=== PATIENT | male | born 2000 | race African-American/Black ===

== ENCOUNTER 2024-04-08 20:13 | Emergency (ER) | payer SELFPAY ==
[2024-04-08] MEDS ORDERED: Lorazepam 2 MG/ML VIAL ONE (20:23)
[2024-04-08] MEDS ORDERED: levETIRAcetam 500 MG (5 mL) VIAL ONE (20:24)
[2024-04-08 20:32] LABS: #Basophils Less than 0.03 10x3/uL (0.0-0.2); %Basophils 0.2 % (0.0-1.0); %Eosinophils 0.5 % (0.0-10.0); %Lymphocytes 38.3 % (21.0-51.0); %Monocytes 8.5 % (0.0-10.0); %Neutrophils 52.3 % (42.0-75.0); Hematocrit 40.3 % (42.0-52.0); Hemoglobin 14.1 g/dL (14.0-18.0); Mean Corpuscular Hemoglobin 30.1 pg (27.0-31.0); Mean Corpuscular Volume 85.9 fL (78.0-98.0); Platelet Count 273 10x3/uL (130-400); RBC Distribution Width 11.4 % (11.5-14.5); Red Blood Cell (RBC) Count 4.69 mill/uL (4.70-6.10)
[2024-04-08 20:44] LABS: Anion Gap 13 mmol/L (10-20); BUN (Urea Nitrogen) 15 mg/dL (8.9-20.6); Calc. Creatinine Clearance 0 mL/min (70-130); Calcium 9.4 mg/dL (7.8-10.44); Carbon Dioxide 19 mmol/L (22-29); Chloride 105 mmol/L (98-107); Estimated GFR 108; Glucose 101 mg/dL (70-105); Potassium 3.7 mmol/L (3.5-5.1); Sodium 133 mmol/L (136-145)
[2024-04-08 21:13] LABS: Bacteria/HPF None Seen HPF (None Seen); Bilirubin Negative (Negative); Blood, Urine Trace (Negative); CAUTI Indications for Culture Alt mental st,lethar; Clarity Clear (Clear); Glucose, Urine (Dipstick) Normal (Negative); Ketone, Urine Negative (Negative); Leukocyte Negative Leu/uL (Negative); Nitrite Negative (Negative); Protein, Urine (Dipstick) 50 mg/dL (Neg-Trace); RBC/HPF None Seen HPF (0-3); Specific Gravity, Urine 1.024 (1.002-1.036); Squamous Epithelial None Seen HPF (0-3); Urobilinogen Normal mg/dL (Less than 2); WBC/HPF 0-3 HPF (0-3); pH, Urine 6.5 (5.0-9.0)
[2024-04-08 21:14] LABS: Sperm/HPF 1+ HPF (None Seen)
[2024-04-08 21:15] LABS: Urine Culture Reflex No No
[2024-04-08 21:18] LABS: Amphetamine Not Detected (NotDetected); Barbiturates Screen Not Detected (NotDetected); Benzodiazepine Screen Not Detected (NotDetected); Cocaine Metabolite Screen Not Detected (NotDetected); Methadone Not Detected (NotDetected); Methamphetamine Not Detected (NotDetected); Opiate Screen Not Detected (NotDetected); Oxycodone Screen Not Detected (NotDetected); Phencyclidine (PCP) Not Detected (NotDetected); THC/Cannabinoid Screen Not Detected (NotDetected); Tricyclic Screen Not Detected (NotDetected)
== END 2024-04-09 03:56 | disposition home or self-care (01) ==
LOC: ERS 20:13 → EDBD 20:13 → ERS 04-09 03:56
DX: G40.909 Epilepsy, unspecified, not intractable, without status epilepticus (principal); E11.9 Type 2 diabetes mellitus without complications
CPT/HCPCS: 70450; 80048; 80306; 81001; 84146; 85025; 93005; 96365; 96375; J1953; J2060

== ENCOUNTER 2024-04-09 14:48 | Emergency (ER) | payer SELFPAY ==
[2024-04-09] MEDS ORDERED: hydrOXYzine 25 MG TAB ONE (16:14)
[2024-04-09 16:36] LABS: #Basophils Less than 0.03 10x3/uL (0.0-0.2); %Basophils 0.3 % (0.0-1.0); %Eosinophils 0.7 % (0.0-10.0); %Lymphocytes 24.4 % (21.0-51.0); %Monocytes 9.6 % (0.0-10.0); %Neutrophils 64.8 % (42.0-75.0); Hematocrit 38.5 % (42.0-52.0); Hemoglobin 13.4 g/dL (14.0-18.0); Mean Corpuscular HGB CONC 34.8 g/dL (32.0-36.0); Mean Corpuscular Hemoglobin 29.9 pg (27.0-31.0); Mean Corpuscular Volume 85.9 fL (78.0-98.0); Mean Platelet Volume 9.1 fL (7.4-10.4); Platelet Count 253 10x3/uL (130-400); RBC Distribution Width 11.3 % (11.5-14.5); Red Blood Cell (RBC) Count 4.48 mill/uL (4.70-6.10)
[2024-04-09 16:55] LABS: ALT (SGPT) 33 U/L (8-55); AST (SGOT) 34 U/L (5-34); Alkaline Phosphatase 69 U/L (40-110); Anion Gap 11 mmol/L (10-20); BUN (Urea Nitrogen) 13 mg/dL (8.9-20.6); Bilirubin, Total 0.5 mg/dL (0.2-1.2); Calc. Creatinine Clearance 0 mL/min (70-130); Calcium 8.8 mg/dL (7.8-10.44); Carbon Dioxide 24 mmol/L (22-29); Chloride 107 mmol/L (98-107); Estimated GFR 110; Globulin 2.9 g/dL (2.4-3.5); Glucose 84 mg/dL (70-105); Potassium 3.8 mmol/L (3.5-5.1); Protein, Total 6.9 g/dL (6.0-8.3); Sodium 138 mmol/L (136-145)
[2024-04-09] MEDS ORDERED: Topiramate 25 MG TAB PO SCH (17:15)
== END 2024-04-09 17:34 | disposition home or self-care (01) ==
LOC: ERS 14:48
DX: G40.909 Epilepsy, unspecified, not intractable, without status epilepticus (principal); E11.9 Type 2 diabetes mellitus without complications
CPT/HCPCS: 36415; 80053; 83605; 85025; 99284

== ENCOUNTER 2024-04-13 01:18 | Inpatient (IN) | payer OTHER, SELFPAY ==
[2024-04-13] MEDS ORDERED: Ondansetron PF 4 MG/2 ML Vial ONE (02:06)
[2024-04-13] MEDS ORDERED: Lorazepam 2 MG/ML VIAL ONE ×2 (02:12→02:15)
[2024-04-13 02:14] LABS: #Basophils Less than 0.03 10x3/uL (0.0-0.2); %Basophils 0.4 % (0.0-1.0); %Eosinophils 0.9 % (0.0-10.0); %Lymphocytes 39.5 % (21.0-51.0); %Monocytes 8.5 % (0.0-10.0); %Neutrophils 50.7 % (42.0-75.0); Hematocrit 40.3 % (42.0-52.0); Hemoglobin 13.5 g/dL (14.0-18.0); Mean Corpuscular HGB CONC 33.5 g/dL (32.0-36.0); Mean Corpuscular Hemoglobin 29.6 pg (27.0-31.0); Mean Corpuscular Volume 88.4 fL (78.0-98.0); Platelet Count 241 10x3/uL (130-400); RBC Distribution Width 11.2 % (11.5-14.5); Red Blood Cell (RBC) Count 4.56 mill/uL (4.70-6.10)
[2024-04-13 02:30] LABS: ALT (SGPT) 34 U/L (8-55); AST (SGOT) 35 U/L (5-34); Albumin 4.2 g/dL (3.5-5.0); Alkaline Phosphatase 72 U/L (40-110); Anion Gap 18 mmol/L (10-20); BUN (Urea Nitrogen) 11 mg/dL (8.9-20.6); Bilirubin, Total 0.3 mg/dL (0.2-1.2); Calc. Creatinine Clearance 0 mL/min (70-130); Carbon Dioxide 15 mmol/L (22-29); Chloride 106 mmol/L (98-107); Estimated GFR 120; Globulin 3.3 g/dL (2.4-3.5); Glucose 79 mg/dL (70-105); Protein, Total 7.5 g/dL (6.0-8.3); Sodium 135 mmol/L (136-145)
[2024-04-13] MEDS ORDERED: Ondansetron ODT 4 MG TAB PO PRN (07:37)
[2024-04-13 08:28] LABS: Amphetamine Not Detected (NotDetected); Barbiturates Screen Not Detected (NotDetected); Benzodiazepine Screen Not Detected (NotDetected); Cocaine Metabolite Screen Not Detected (NotDetected); Methadone Not Detected (NotDetected); Methamphetamine Not Detected (NotDetected); Opiate Screen Not Detected (NotDetected); Oxycodone Screen Not Detected (NotDetected); Phencyclidine (PCP) Not Detected (NotDetected); THC/Cannabinoid Screen Not Detected (NotDetected); Tricyclic Screen Not Detected (NotDetected)
[2024-04-13 09:07] VITALS: BMI 22.4
[2024-04-13] MEDS: SODIUM CHLORIDE IVPB SCH (09:27)
[2024-04-13] MEDS: FOSPHENYTOIN SODIUM IVPB SCH (09:27)
[2024-04-13] MEDS: ADMIXTURE FEE IVPB SCH (09:27)
[2024-04-13] MEDS: Enoxaparin 40 MG (0.4 mL) SYRINGE SC SCH (10:33)
[2024-04-13] MEDS: Fosphenytoin Sodium 200 MG in Sodium Chloride 0.9% 50 ML IVPB SCH (10:33)
[2024-04-13] MEDS: Acetaminophen 325 MG TAB PO PRN (12:17)
[2024-04-13] MEDS: Lorazepam 2 MG/ML VIAL SLOW IVP PRN (12:52)
[2024-04-13] MEDS: FLU (Fluarix Triv) TS24-25(6MOS UP)/PF 45 MCG/0.5 ML Syringe IM ONE (15:00)
[2024-04-14] MEDS ORDERED: Guaifenesin DM 100-10/5 ML UDCUP PO PRN (15:48)
[2024-04-15] MEDS: Lorazepam 2 MG/ML VIAL SLOW IVP PRN (15:55)
[2024-04-15] MEDS ORDERED: Lorazepam 2 MG/ML VIAL SLOW IVP PRN (16:26)
[2024-04-15] MEDS ORDERED: QUEtiapine 25 MG TAB PO SCH ×2 (16:30→21:00)
[2024-04-15] MEDS: QUEtiapine 25 MG TAB PO SCH (16:46)
[2024-04-15 17:55] VITALS: BMI 22.4
[2024-04-15] MEDS ORDERED: clonazePAM 1 MG TAB PO SCH (21:00)
[2024-04-16 09:02] VITALS: BP 139/86; TEMP 98.1
[2024-04-16] MEDS: QUEtiapine 25 MG TAB PO SCH (10:41)
== END 2024-04-16 11:20 | DRG 101 ==
LOC: ERS 01:18 → ERHOLD 05:42 → PCU 08:23 → OBSVTOIN 04-15 16:42
PROVIDERS: ADMIT Student in an Organized Health Care Education/Training Program; ATTEND Internal Medicine
PROC: 4A10X4Z Monitoring of Central Nervous Electrical Activity, External Approach (ICD-10-PCS; principal; 2024-04-13)
DX: R56.9 Unspecified convulsions (principal); E11.9 Type 2 diabetes mellitus without complications; F31.9 Bipolar disorder, unspecified; F43.10 Post-traumatic stress disorder, unspecified; Z98.890 Other specified postprocedural states; Z79.899 Other long term (current) drug therapy; Z88.8 Allergy status to other drugs, medicaments and biological substances
CPT/HCPCS: 36415; 36416; 70450; 80053; 80306; 84146; 85025; 90656; 93005; 95813; 96374; 96375; J1650; J2060; J2405; Q2009

== ENCOUNTER 2024-04-24 15:27 | Emergency (ER) | payer OTHER ==
[2024-04-24] MEDS ORDERED: Lorazepam 2 MG/ML VIAL ONE (15:36)
[2024-04-24] MEDS ORDERED: Fosphenytoin Sodium 1,500 MG, Admixture Fee 1 EACH in Sodium Chloride 0.9% 100 ML IVPB SCH (16:45)
[2024-04-24 16:55] LABS: Bacteria/HPF None Seen HPF (None Seen); Bilirubin Negative (Negative); Blood, Urine Negative (Negative); CAUTI Indications for Culture Alt mental st,lethar; Clarity Clear (Clear); Glucose, Urine (Dipstick) Normal (Negative); Ketone, Urine Negative (Negative); Leukocyte Negative Leu/uL (Negative); Nitrite Negative (Negative); Protein, Urine (Dipstick) Negative (Neg-Trace); RBC/HPF 0-3 HPF (0-3); Squamous Epithelial 0-3 HPF (0-3); Urobilinogen Normal mg/dL (Less than 2); WBC/HPF 0-3 HPF (0-3)
[2024-04-24 16:57] LABS: Urine Culture Reflex No No
[2024-04-24 17:01] LABS: Amphetamine Not Detected (NotDetected); Barbiturates Screen Not Detected (NotDetected); Benzodiazepine Screen Not Detected (NotDetected); Cocaine Metabolite Screen Not Detected (NotDetected); Methadone Not Detected (NotDetected); Methamphetamine Not Detected (NotDetected); Opiate Screen Not Detected (NotDetected); Oxycodone Screen Not Detected (NotDetected); Phencyclidine (PCP) Not Detected (NotDetected); THC/Cannabinoid Screen Not Detected (NotDetected); Tricyclic Screen Not Detected (NotDetected)
[2024-04-24 17:19] LABS: #Basophils 0.03 10x3/uL (0.0-0.2); #Eosinophils Less than 0.03 10x3/uL (0.0-0.7); %Basophils 0.2 % (0.0-1.0); %Eosinophils 0.1 % (0.0-10.0); %Lymphocytes 19.2 % (21.0-51.0); %Monocytes 5.1 % (0.0-10.0); %Neutrophils 75.2 % (42.0-75.0); Hematocrit 51.2 % (42.0-52.0); Hemoglobin 17.1 g/dL (14.0-18.0); Mean Corpuscular HGB CONC 33.4 g/dL (32.0-36.0); Mean Corpuscular Hemoglobin 29.9 pg (27.0-31.0); Mean Corpuscular Volume 89.7 fL (78.0-98.0); Platelet Count 281 10x3/uL (130-400); RBC Distribution Width 11.6 % (11.5-14.5); Red Blood Cell (RBC) Count 5.71 mill/uL (4.70-6.10)
== END 2024-04-24 18:28 | disposition left against medical advice (07) ==
LOC: ERS 15:27
DX: G40.909 Epilepsy, unspecified, not intractable, without status epilepticus (principal); E11.9 Type 2 diabetes mellitus without complications
CPT/HCPCS: 71045; 80177; 80306; 81001; 85025; 93005; 94760; 96365; J2060; Q2009

== ENCOUNTER 2024-04-25 06:24 | Emergency (ER) | payer OTHER ==
[2024-04-25] MEDS ORDERED: levETIRAcetam 500 MG (5 mL) VIAL ONE (06:52)
[2024-04-25] MEDS ORDERED: Lorazepam 2 MG/ML VIAL ONE (06:52)
[2024-04-25 07:03] LABS: #Basophils Less than 0.03 10x3/uL (0.0-0.2); #Eosinophils Less than 0.03 10x3/uL (0.0-0.7); %Basophils 0.2 % (0.0-1.0); %Eosinophils 0.2 % (0.0-10.0); %Lymphocytes 14.5 % (21.0-51.0); %Monocytes 6.1 % (0.0-10.0); %Neutrophils 78.7 % (42.0-75.0); Hematocrit 38.3 % (42.0-52.0); Hemoglobin 13.3 g/dL (14.0-18.0); Mean Corpuscular HGB CONC 34.7 g/dL (32.0-36.0); Mean Corpuscular Hemoglobin 30.2 pg (27.0-31.0); Mean Platelet Volume 8.8 fL (7.4-10.4); Platelet Count 249 10x3/uL (130-400); RBC Distribution Width 11.4 % (11.5-14.5)
[2024-04-25 07:21] LABS: ALT (SGPT) 91 U/L (8-55); AST (SGOT) 47 U/L (5-34); Albumin 4.1 g/dL (3.5-5.0); Alkaline Phosphatase 78 U/L (40-110); Anion Gap 13 mmol/L (10-20); BUN (Urea Nitrogen) 12 mg/dL (8.9-20.6); Bilirubin, Total 0.3 mg/dL (0.2-1.2); Calc. Creatinine Clearance 0 mL/min (70-130); Calcium 8.8 mg/dL (7.8-10.44); Carbon Dioxide 19 mmol/L (22-29); Chloride 112 mmol/L (98-107); Estimated GFR 117; Glucose 97 mg/dL (70-105); Potassium 3.5 mmol/L (3.5-5.1); Protein, Total 7.1 g/dL (6.0-8.3); Sodium 140 mmol/L (136-145)
[2024-04-25 07:27] LABS: Troponin I Less than 0.010 ng/mL (< 0.028)
== END 2024-04-25 09:49 | disposition short-term general hospital (02) ==
LOC: ERS 06:24 → EEVIPCON 06:24 → ERS 09:49
DX: T74.21XA Adult sexual abuse, confirmed, initial encounter (principal); G40.909 Epilepsy, unspecified, not intractable, without status epilepticus; E11.9 Type 2 diabetes mellitus without complications
CPT/HCPCS: 36415; 71045; 80053; 80177; 80306; 81001; 83605; 84484; 85025; 93005; 94760; 96365; 96374; 96375; J1953; J2060; Q2009

== ENCOUNTER 2024-05-02 18:19 | Emergency (ER) | payer OTHER ==
[2024-05-02 19:07] LABS: #Basophils Less than 0.03 10x3/uL (0.0-0.2); %Basophils 0.2 % (0.0-1.0); %Eosinophils 0.4 % (0.0-10.0); %Lymphocytes 22.4 % (21.0-51.0); %Monocytes 5.4 % (0.0-10.0); %Neutrophils 71.4 % (42.0-75.0); Hemoglobin 14.9 g/dL (14.0-18.0); Mean Corpuscular HGB CONC 33.9 g/dL (32.0-36.0); Mean Corpuscular Hemoglobin 29.8 pg (27.0-31.0); Platelet Count 316 10x3/uL (130-400); RBC Distribution Width 11.2 % (11.5-14.5)
[2024-05-02 19:40] LABS: ALT (SGPT) 55 U/L (8-55); AST (SGOT) 36 U/L (5-34); Albumin 4.8 g/dL (3.5-5.0); Alkaline Phosphatase 93 U/L (40-110); Anion Gap 16 mmol/L (10-20); BUN (Urea Nitrogen) 11 mg/dL (8.9-20.6); Bilirubin, Total 0.3 mg/dL (0.2-1.2); Calc. Creatinine Clearance 0 mL/min (70-130); Calcium 9.8 mg/dL (7.8-10.44); Carbon Dioxide 23 mmol/L (22-29); Chloride 106 mmol/L (98-107); Estimated GFR 93; Glucose 93 mg/dL (70-105); Lipase 26 U/L (8-78); Potassium 3.7 mmol/L (3.5-5.1); Protein, Total 8.8 g/dL (6.0-8.3); Sodium 141 mmol/L (136-145)
[2024-05-02] MEDS ORDERED: Ondansetron PF 4 MG/2 ML Vial ONE (20:09)
[2024-05-02] MEDS ORDERED: levETIRAcetam 500 MG TAB ONE (22:05)
[2024-05-02] MEDS ORDERED: Lorazepam 2 MG/ML VIAL ONE ×2 (22:15→22:34)
[2024-05-02] MEDS ORDERED: levETIRAcetam 500 MG (5 mL) VIAL ONE (22:15)
[2024-05-02 22:35] LABS: Bacteria/HPF None Seen HPF (None Seen); Bilirubin Negative (Negative); Blood, Urine Trace (Negative); CAUTI Indications for Culture Alt mental st,lethar; Clarity Clear (Clear); Glucose, Urine (Dipstick) Normal (Negative); Ketone, Urine Negative (Negative); Leukocyte Negative Leu/uL (Negative); Nitrite Negative (Negative); Protein, Urine (Dipstick) Negative (Neg-Trace); RBC/HPF 0-3 HPF (0-3); Specific Gravity, Urine 1.008 (1.002-1.036); Squamous Epithelial 0-3 HPF (0-3); Urobilinogen Normal mg/dL (Less than 2); WBC/HPF 0-3 HPF (0-3); pH, Urine 6.5 (5.0-9.0)
[2024-05-02 22:40] LABS: Urine Culture Reflex No No
== END 2024-05-03 00:06 | disposition home or self-care (01) ==
LOC: ERS 18:19
DX: G40.909 Epilepsy, unspecified, not intractable, without status epilepticus (principal); R11.2 Nausea with vomiting, unspecified; R19.7 Diarrhea, unspecified; E11.9 Type 2 diabetes mellitus without complications; Z87.891 Personal history of nicotine dependence; Z79.899 Other long term (current) drug therapy
CPT/HCPCS: 36415; 71045; 80053; 81001; 83690; 85025; 87428; 93005; 96372; 96374; J1953; J2060; J2405

== ENCOUNTER 2024-05-10 00:10 | Emergency (ER) | payer OTHER, SELFPAY ==
[2024-05-10 01:16] LABS: #Basophils 0.03 10x3/uL (0.0-0.2); #Eosinophils Less than 0.03 10x3/uL (0.0-0.7); %Basophils 0.3 % (0.0-1.0); %Eosinophils 0.2 % (0.0-10.0); %Lymphocytes 14.4 % (21.0-51.0); %Monocytes 7.3 % (0.0-10.0); %Neutrophils 77.5 % (42.0-75.0); Hematocrit 38.7 % (42.0-52.0); Hemoglobin 13.2 g/dL (14.0-18.0); Mean Corpuscular HGB CONC 34.1 g/dL (32.0-36.0); Mean Corpuscular Hemoglobin 29.8 pg (27.0-31.0); Mean Corpuscular Volume 87.4 fL (78.0-98.0); Mean Platelet Volume 9.3 fL (7.4-10.4); Platelet Count 292 10x3/uL (130-400); RBC Distribution Width 11.2 % (11.5-14.5); Red Blood Cell (RBC) Count 4.43 mill/uL (4.70-6.10)
[2024-05-10 01:30] LABS: Alcohol Less than 10.0 mg/dL (Less than 10)
[2024-05-10 01:32] LABS: Acetaminophen Less than 10 mcg/mL (Less than 10); Alcohol Less than 10.0 mg/dL (Less than 10); Salicylate Less than 8.0 mg/dL (Less than 8.0)
[2024-05-10 01:33] LABS: ALT (SGPT) 28 U/L (8-55); AST (SGOT) 28 U/L (5-34); Albumin 4.2 g/dL (3.5-5.0); Alkaline Phosphatase 81 U/L (40-110); Anion Gap 14 mmol/L (10-20); BUN (Urea Nitrogen) 13 mg/dL (8.9-20.6); Bilirubin, Total 0.3 mg/dL (0.2-1.2); CK (CPK) 401 U/L (30-200); Calc. Creatinine Clearance 0 mL/min (70-130); Calcium 9.1 mg/dL (7.8-10.44); Carbon Dioxide 22 mmol/L (22-29); Chloride 106 mmol/L (98-107); Estimated GFR 94; Globulin 3.4 g/dL (2.4-3.5); Glucose 103 mg/dL (70-105); Potassium 3.7 mmol/L (3.5-5.1); Protein, Total 7.6 g/dL (6.0-8.3); Sodium 138 mmol/L (136-145)
[2024-05-10 01:35] LABS: Bacteria/HPF None Seen HPF (None Seen); Bilirubin Negative (Negative); Blood, Urine Negative (Negative); CAUTI Indications for Culture Alt mental st,lethar; Clarity Clear (Clear); Glucose, Urine (Dipstick) Normal (Negative); Ketone, Urine Negative (Negative); Leukocyte Negative Leu/uL (Negative); Nitrite Negative (Negative); Protein, Urine (Dipstick) Negative (Neg-Trace); RBC/HPF 0-3 HPF (0-3); Specific Gravity, Urine 1.025 (1.002-1.036); Squamous Epithelial 0-3 HPF (0-3); Urobilinogen Normal mg/dL (Less than 2); WBC/HPF 0-3 HPF (0-3); pH, Urine 6.5 (5.0-9.0)
[2024-05-10 01:37] LABS: Urine Culture Reflex No No
[2024-05-10 01:43] LABS: Amphetamine Not Detected (NotDetected); Barbiturates Screen Not Detected (NotDetected); Benzodiazepine Screen Not Detected (NotDetected); Cocaine Metabolite Screen Not Detected (NotDetected); Methadone Not Detected (NotDetected); Methamphetamine Not Detected (NotDetected); Opiate Screen Not Detected (NotDetected); Oxycodone Screen Not Detected (NotDetected); Phencyclidine (PCP) Not Detected (NotDetected); THC/Cannabinoid Screen Not Detected (NotDetected); Tricyclic Screen Not Detected (NotDetected)
== END 2024-05-10 03:04 | disposition home or self-care (01) ==
LOC: ERS 00:10
DX: F32.A Depression, unspecified (principal); E11.9 Type 2 diabetes mellitus without complications; J45.909 Unspecified asthma, uncomplicated; G40.909 Epilepsy, unspecified, not intractable, without status epilepticus; Z87.891 Personal history of nicotine dependence; Z79.899 Other long term (current) drug therapy
CPT/HCPCS: 80053; 80306; 80307; 81001; 82550; 84443; 85025; 99285

== ENCOUNTER 2024-05-11 01:34 | Emergency (ER) | payer OTHER ==
[2024-05-11] MEDS ORDERED: Ketorolac Tromethamine 30 MG (1 mL) VIAL ONE (01:55)
[2024-05-11] MEDS ORDERED: levETIRAcetam 500 MG (5 mL) VIAL ONE (01:55)
[2024-05-11 02:08] LABS: #Basophils 0.03 10x3/uL (0.0-0.2); #Eosinophils Less than 0.03 10x3/uL (0.0-0.7); %Basophils 0.4 % (0.0-1.0); %Eosinophils 0.1 % (0.0-10.0); %Lymphocytes 21.4 % (21.0-51.0); %Monocytes 9.5 % (0.0-10.0); %Neutrophils 68.3 % (42.0-75.0); Hematocrit 39.3 % (42.0-52.0); Hemoglobin 13.1 g/dL (14.0-18.0); Mean Corpuscular HGB CONC 33.3 g/dL (32.0-36.0); Mean Corpuscular Hemoglobin 30.3 pg (27.0-31.0); Mean Platelet Volume 9.1 fL (7.4-10.4); Platelet Count 255 10x3/uL (130-400); RBC Distribution Width 11.1 % (11.5-14.5); Red Blood Cell (RBC) Count 4.32 mill/uL (4.70-6.10)
[2024-05-11 02:22] LABS: ALT (SGPT) 25 U/L (8-55); AST (SGOT) 28 U/L (5-34); Albumin 4.1 g/dL (3.5-5.0); Alkaline Phosphatase 85 U/L (40-110); Anion Gap 15 mmol/L (10-20); BUN (Urea Nitrogen) 10 mg/dL (8.9-20.6); Bilirubin, Total 0.4 mg/dL (0.2-1.2); Calc. Creatinine Clearance 0 mL/min (70-130); Carbon Dioxide 19 mmol/L (22-29); Chloride 107 mmol/L (98-107); Estimated GFR 106; Globulin 3.1 g/dL (2.4-3.5); Glucose 104 mg/dL (70-105); Potassium 3.5 mmol/L (3.5-5.1); Protein, Total 7.2 g/dL (6.0-8.3); Sodium 137 mmol/L (136-145)
== END 2024-05-11 02:49 | disposition home or self-care (01) ==
LOC: ERS 01:34
DX: G40.909 Epilepsy, unspecified, not intractable, without status epilepticus (principal); E11.9 Type 2 diabetes mellitus without complications; Z87.891 Personal history of nicotine dependence
CPT/HCPCS: 36415; 80053; 85025; 93005; 94760; 96365; 96375; J1885; J1953

== ENCOUNTER 2024-05-19 13:42 | Emergency (ER) | payer OTHER, SELFPAY ==
[2024-05-19 14:40] LABS: #Basophils Less than 0.03 10x3/uL (0.0-0.2); #Eosinophils Less than 0.03 10x3/uL (0.0-0.7); %Basophils 0.3 % (0.0-1.0); %Eosinophils 0.3 % (0.0-10.0); %Lymphocytes 26.6 % (21.0-51.0); %Monocytes 7.3 % (0.0-10.0); %Neutrophils 65.3 % (42.0-75.0); Hematocrit 40.2 % (42.0-52.0); Hemoglobin 13.9 g/dL (14.0-18.0); Mean Corpuscular HGB CONC 34.6 g/dL (32.0-36.0); Mean Corpuscular Hemoglobin 29.7 pg (27.0-31.0); Mean Corpuscular Volume 85.9 fL (78.0-98.0); Mean Platelet Volume 9.2 fL (7.4-10.4); Platelet Count 310 10x3/uL (130-400); RBC Distribution Width 11.3 % (11.5-14.5); Red Blood Cell (RBC) Count 4.68 mill/uL (4.70-6.10)
[2024-05-19] MEDS ORDERED: levETIRAcetam 500 MG (5 mL) VIAL ONE ×2 (14:43→15:53)
[2024-05-19] MEDS ORDERED: Acetaminophen 500 MG TAB ONE (14:43)
[2024-05-19] MEDS ORDERED: Ondansetron PF 4 MG/2 ML Vial ONE ×2 (14:43→15:53)
[2024-05-19 15:02] LABS: ALT (SGPT) 23 U/L (8-55); AST (SGOT) 24 U/L (5-34); Albumin 3.9 g/dL (3.5-5.0); Alkaline Phosphatase 76 U/L (40-110); Anion Gap 12 mmol/L (10-20); BUN (Urea Nitrogen) 12 mg/dL (8.9-20.6); Bilirubin, Total 0.3 mg/dL (0.2-1.2); CK (CPK) 281 U/L (30-200); Calc. Creatinine Clearance 0 mL/min (70-130); Calcium 9.5 mg/dL (7.8-10.44); Carbon Dioxide 23 mmol/L (22-29); Chloride 107 mmol/L (98-107); Estimated GFR 78; Globulin 3.5 g/dL (2.4-3.5); Glucose 115 mg/dL (70-105); Potassium 4.1 mmol/L (3.5-5.1); Protein, Total 7.4 g/dL (6.0-8.3); Sodium 138 mmol/L (136-145)
== END 2024-05-19 19:05 | disposition home or self-care (01) ==
LOC: ERS 13:42
DX: S09.90XA Unspecified injury of head, initial encounter (principal); R56.9 Unspecified convulsions; E11.9 Type 2 diabetes mellitus without complications; Z87.891 Personal history of nicotine dependence; X58.XXXA Exposure to other specified factors, initial encounter
CPT/HCPCS: 36415; 70450; 72125; 80053; 82550; 85025; 96374; 96375; 96376; J1953; J2405

== ENCOUNTER 2024-05-21 13:28 | Emergency (ER) | payer OTHER ==
[2024-05-21 14:17] LABS: #Basophils Less than 0.03 10x3/uL (0.0-0.2); #Eosinophils Less than 0.03 10x3/uL (0.0-0.7); %Basophils 0.4 % (0.0-1.0); %Eosinophils 0.2 % (0.0-10.0); %Lymphocytes 27.5 % (21.0-51.0); %Monocytes 9.3 % (0.0-10.0); %Neutrophils 62.4 % (42.0-75.0); Hematocrit 41.9 % (42.0-52.0); Hemoglobin 14.1 g/dL (14.0-18.0); Mean Corpuscular HGB CONC 33.7 g/dL (32.0-36.0); Mean Corpuscular Hemoglobin 29.4 pg (27.0-31.0); Mean Corpuscular Volume 87.3 fL (78.0-98.0); Mean Platelet Volume 9.3 fL (7.4-10.4); Platelet Count 312 10x3/uL (130-400); RBC Distribution Width 11.4 % (11.5-14.5)
[2024-05-21 15:02] LABS: ALT (SGPT) 27 U/L (8-55); AST (SGOT) 39 U/L (5-34); Albumin 4.3 g/dL (3.5-5.0); Alkaline Phosphatase 91 U/L (40-110); Anion Gap 16 mmol/L (10-20); BUN (Urea Nitrogen) 9 mg/dL (8.9-20.6); Bilirubin, Total 0.5 mg/dL (0.2-1.2); Calc. Creatinine Clearance 0 mL/min (70-130); Calcium 9.9 mg/dL (7.8-10.44); Carbon Dioxide 17 mmol/L (22-29); Chloride 108 mmol/L (98-107); Estimated GFR 88; Globulin 4.2 g/dL (2.4-3.5); Glucose 74 mg/dL (70-105); Potassium 4.6 mmol/L (3.5-5.1); Protein, Total 8.5 g/dL (6.0-8.3); Sodium 136 mmol/L (136-145)
== END 2024-05-21 16:06 | disposition home or self-care (01) ==
LOC: ERS 13:28
DX: G40.909 Epilepsy, unspecified, not intractable, without status epilepticus (principal); E11.9 Type 2 diabetes mellitus without complications; Z79.899 Other long term (current) drug therapy; Z87.891 Personal history of nicotine dependence
CPT/HCPCS: 36415; 80053; 80177; 84146; 85025

== ENCOUNTER 2024-05-21 23:40 | Emergency (ER) | payer OTHER ==
[2024-05-22] MEDS ORDERED: Ketorolac Tromethamine 30 MG (1 mL) VIAL ONE (00:31)
[2024-05-22] MEDS ORDERED: Ondansetron ODT 4 MG TAB ONE (00:31)
[2024-05-22 00:58] LABS: MONO NEGATIVE CONTROL ZONE White (Negative) (White); MONO POSITIVE CONTROL Pink Line (Positive) (PINK/RED); Mononucleosis NEGATIVE (NEGATIVE)
== END 2024-05-22 01:31 | disposition home or self-care (01) ==
LOC: ERS 23:40
DX: J02.9 Acute pharyngitis, unspecified (principal); E11.9 Type 2 diabetes mellitus without complications; Z87.891 Personal history of nicotine dependence; G40.909 Epilepsy, unspecified, not intractable, without status epilepticus; Z79.899 Other long term (current) drug therapy
CPT/HCPCS: 36415; 80053; 80177; 84146; 85025; 86308; 87081; 87428; 87430; 93005; 96372; 99283; J1885; Q0162

== ENCOUNTER 2024-05-29 02:45 | Emergency (ER) | payer OTHER ==
[2024-05-29 04:04] LABS: #Basophils 0.03 10x3/uL (0.0-0.2); %Basophils 0.4 % (0.0-1.0); %Eosinophils 0.4 % (0.0-10.0); %Lymphocytes 23.3 % (21.0-51.0); %Monocytes 6.2 % (0.0-10.0); %Neutrophils 69.5 % (42.0-75.0); Hematocrit 39.6 % (42.0-52.0); Hemoglobin 13.5 g/dL (14.0-18.0); Mean Corpuscular HGB CONC 34.1 g/dL (32.0-36.0); Mean Corpuscular Hemoglobin 30.1 pg (27.0-31.0); Mean Corpuscular Volume 88.4 fL (78.0-98.0); Mean Platelet Volume 9.4 fL (7.4-10.4); Platelet Count 301 10x3/uL (130-400); RBC Distribution Width 11.5 % (11.5-14.5); Red Blood Cell (RBC) Count 4.48 mill/uL (4.70-6.10)
[2024-05-29 04:22] LABS: ALT (SGPT) 25 U/L (8-55); AST (SGOT) 26 U/L (5-34); Albumin 4.3 g/dL (3.5-5.0); Alkaline Phosphatase 75 U/L (40-110); Anion Gap 13 mmol/L (10-20); BUN (Urea Nitrogen) 15 mg/dL (8.9-20.6); Bilirubin, Total 0.3 mg/dL (0.2-1.2); Calc. Creatinine Clearance 0 mL/min (70-130); Calcium 9.3 mg/dL (7.8-10.44); Carbon Dioxide 24 mmol/L (22-29); Chloride 106 mmol/L (98-107); Estimated GFR 75; Globulin 3.4 g/dL (2.4-3.5); Glucose 87 mg/dL (70-105); Potassium 3.6 mmol/L (3.5-5.1); Protein, Total 7.7 g/dL (6.0-8.3); Sodium 139 mmol/L (136-145)
[2024-05-29 04:29] LABS: Amphetamine Not Detected (NotDetected); Barbiturates Screen Not Detected (NotDetected); Benzodiazepine Screen Not Detected (NotDetected); Cocaine Metabolite Screen Not Detected (NotDetected); Methadone Not Detected (NotDetected); Methamphetamine Not Detected (NotDetected); Opiate Screen Not Detected (NotDetected); Oxycodone Screen Not Detected (NotDetected); Phencyclidine (PCP) Not Detected (NotDetected); THC/Cannabinoid Screen Not Detected (NotDetected); Tricyclic Screen Not Detected (NotDetected)
[2024-05-29 04:30] LABS: Acetaminophen Less than 10 mcg/mL (Less than 10); Alcohol Less than 10.0 mg/dL (Less than 10); Salicylate Less than 8.0 mg/dL (Less than 8.0)
[2024-05-29] MEDS ORDERED: Diazepam 5 MG TAB ONE ×2 (04:33→04:47)
[2024-05-29] MEDS ORDERED: Lorazepam 2 MG/ML VIAL ONE (04:51)
== END 2024-05-29 13:50 | disposition home or self-care (01) ==
LOC: ERS 02:45
DX: G40.909 Epilepsy, unspecified, not intractable, without status epilepticus (principal); F44.4 Conversion disorder with motor symptom or deficit; F32.9 Major depressive disorder, single episode, unspecified; R45.851 Suicidal ideations; E11.9 Type 2 diabetes mellitus without complications; Z55.6 Problems related to health literacy; Z87.891 Personal history of nicotine dependence
CPT/HCPCS: 36415; 80053; 80306; 80307; 85025; 93005; 96372; 99284; J2060

== ENCOUNTER 2024-06-04 00:43 | Emergency (ER) | payer OTHER, SELFPAY ==
[2024-06-04] MEDS ORDERED: levETIRAcetam 500 MG (5 mL) VIAL ONE (01:23)
[2024-06-04 01:26] LABS: #Basophils Less than 0.03 10x3/uL (0.0-0.2); %Basophils 0.3 % (0.0-1.0); %Eosinophils 1.4 % (0.0-10.0); %Lymphocytes 39.1 % (21.0-51.0); Hematocrit 39.6 % (42.0-52.0); Hemoglobin 13.6 g/dL (14.0-18.0); Mean Corpuscular HGB CONC 34.3 g/dL (32.0-36.0); Mean Corpuscular Volume 87.2 fL (78.0-98.0); Platelet Count 269 10x3/uL (130-400); RBC Distribution Width 11.7 % (11.5-14.5); Red Blood Cell (RBC) Count 4.54 mill/uL (4.70-6.10)
[2024-06-04] MEDS ORDERED: levETIRAcetam 500 MG TAB ONE (01:41)
[2024-06-04 01:46] LABS: ALT (SGPT) 30 U/L (8-55); AST (SGOT) 26 U/L (5-34); Albumin 4.2 g/dL (3.5-5.0); Alkaline Phosphatase 73 U/L (40-110); Anion Gap 14 mmol/L (10-20); BUN (Urea Nitrogen) 11 mg/dL (8.9-20.6); Bilirubin, Total 0.2 mg/dL (0.2-1.2); Calc. Creatinine Clearance 0 mL/min (70-130); Calcium 9.2 mg/dL (7.8-10.44); Carbon Dioxide 19 mmol/L (22-29); Chloride 108 mmol/L (98-107); Estimated GFR 108; Globulin 3.4 g/dL (2.4-3.5); Glucose 93 mg/dL (70-105); Potassium 3.6 mmol/L (3.5-5.1); Protein, Total 7.6 g/dL (6.0-8.3); Sodium 137 mmol/L (136-145)
== END 2024-06-04 02:03 | disposition home or self-care (01) ==
LOC: ERS 00:43
DX: F44.9 Dissociative and conversion disorder, unspecified (principal); G40.909 Epilepsy, unspecified, not intractable, without status epilepticus; E11.9 Type 2 diabetes mellitus without complications; Z55.6 Problems related to health literacy; Z87.891 Personal history of nicotine dependence
CPT/HCPCS: 36415; 80053; 85025; 99284; J1953

== ENCOUNTER 2024-06-22 17:58 | Emergency (ER) | payer OTHER | END 2024-06-22 21:55 | disposition left against medical advice (07) | LOC: ERS 17:58 | DX: Z53.21 Procedure and treatment not carried out due to patient leaving prior to being seen by health care provider (principal) | CPT/HCPCS: 93005 ==

== ENCOUNTER 2024-06-23 11:39 | Emergency (ER) | payer OTHER ==
[2024-06-23] MEDS ORDERED: Ketorolac Tromethamine 30 MG (1 mL) VIAL ONE (13:20)
[2024-06-23 13:52] LABS: #Basophils Less than 0.03 10x3/uL (0.0-0.2); %Basophils 0.3 % (0.0-1.0); %Eosinophils 0.4 % (0.0-10.0); %Lymphocytes 25.6 % (21.0-51.0); %Monocytes 5.9 % (0.0-10.0); %Neutrophils 67.4 % (42.0-75.0); Hematocrit 41.3 % (42.0-52.0); Hemoglobin 13.8 g/dL (14.0-18.0); Mean Corpuscular HGB CONC 33.4 g/dL (32.0-36.0); Mean Corpuscular Hemoglobin 29.2 pg (27.0-31.0); Mean Corpuscular Volume 87.5 fL (78.0-98.0); Mean Platelet Volume 8.5 fL (7.4-10.4); Platelet Count 441 10x3/uL (130-400); RBC Distribution Width 11.3 % (11.5-14.5); Red Blood Cell (RBC) Count 4.72 mill/uL (4.70-6.10)
[2024-06-23 14:16] LABS: ALT (SGPT) 42 U/L (8-55); AST (SGOT) 23 U/L (5-34); Albumin 4.2 g/dL (3.5-5.0); Alkaline Phosphatase 89 U/L (40-110); Anion Gap 12 mmol/L (10-20); BUN (Urea Nitrogen) 15 mg/dL (8.9-20.6); Bilirubin, Total 0.3 mg/dL (0.2-1.2); Calc. Creatinine Clearance 0 mL/min (70-130); Calcium 9.5 mg/dL (7.8-10.44); Carbon Dioxide 25 mmol/L (22-29); Chloride 107 mmol/L (98-107); Estimated GFR 100; Globulin 4.2 g/dL (2.4-3.5); Glucose 83 mg/dL (70-105); Lipase 28 U/L (8-78); Potassium 4.3 mmol/L (3.5-5.1); Protein, Total 8.4 g/dL (6.0-8.3); Sodium 140 mmol/L (136-145)
[2024-06-23 14:19] LABS: Troponin I Less than 0.010 ng/mL (< 0.028)
[2024-06-23] MEDS ORDERED: Ondansetron ODT 4 MG TAB ONE (15:16)
[2024-06-23] MEDS ORDERED: levETIRAcetam 500 MG TAB ONE (15:16)
== END 2024-06-23 15:24 | disposition home or self-care (01) ==
LOC: ERS 11:39
DX: F44.4 Conversion disorder with motor symptom or deficit (principal); J02.9 Acute pharyngitis, unspecified; Z87.891 Personal history of nicotine dependence
CPT/HCPCS: 36415; 80053; 83690; 84484; 85025; 87081; 87430; 93005; 96372; 99284; J1885; Q0162

== ENCOUNTER 2024-06-29 19:31 | Emergency (ER) | payer OTHER | END 2024-06-29 23:37 | disposition home or self-care (01) | LOC: ERS 19:31 | DX: F33.9 Major depressive disorder, recurrent, unspecified (principal); Z87.891 Personal history of nicotine dependence | CPT/HCPCS: 36416; 99284 ==

== ENCOUNTER 2024-07-01 14:34 | Emergency (ER) | payer OTHER | END 2024-07-01 19:18 | disposition left against medical advice (07) | LOC: ERS 14:34 | DX: Z53.21 Procedure and treatment not carried out due to patient leaving prior to being seen by health care provider (principal) ==